=== PATIENT | male | born 1950 | race American Indian/Alaskan Native ===

== ENCOUNTER 2018-10-16 16:52 | Emergency (ER) | payer MEDICARE, OTHER ==
--- NOTE | 2018-10-16 17:04 | Emergency Department Report ---
Blank Doc - Documentation Documentation: Dr. Fu office called said he had low potassium said to come to the ED denies any symptoms just went to PCP for a regular check up PMHx HTN amlodipine, telimsartan, hydrochlorothiazide non smoker non drinker no drug use
[2018-10-16 17:17] LABS: Basophils % (Auto) 0.5 % (0.0-1.8); Eosinophils # (Auto) 0.1 K/mm3 (0.0-0.4); Eosinophils % (Auto) 1.4 % (0.0-4.3); Hematocrit 42.1 % (35.5-45.6); Hemoglobin 14.7 gm/dl (11.8-15.2); Lymphocytes # (Auto) 2.4 K/mm3 (1.2-5.4); Lymphocytes % (Auto) 23.2 % (13.4-35.0); Mean Corpuscular HGB Conc 35 % (32-34); Mean Corpuscular Volume 87 fl (84-94); Monocytes # (Auto) 0.7 K/mm3 (0.0-0.8); Monocytes % (Auto) 6.9 % (0.0-7.3); Platelet Count 234 K/mm3 (140-440); Red Blood Count 4.86 M/mm3 (3.65-5.03); Red Cell Distribution Width 13.7 % (13.2-15.2)
[2018-10-16 17:29] LABS: Calcium 9.7 mg/dL (8.4-10.2)
--- NOTE | 2018-10-16 17:59 | Emergency Department Report ---
ED Recheck HPI - General Chief Complaint: Recheck/Abnormal Lab/Rx Stated Complaint: LOW POTASSIUM Time Seen by Provider: 10/16/18 17:45 Source: patient Mode of arrival: Ambulatory Limitations: No Limitations - History of Present Illness Initial Comments: Patient is a 68-year-old male presents emergency room for recheck of potassium. Patient states he was called by his primary care because his potassium was extremely low on a routine blood draw the PCPs office. Patient's past history is hypertension only. Patient is not sure if he takes a diuretic. Patient states he is taking Norvasc. Patient denies chest pain shortness of breath. Patient denies cramps. Patient denies any physical complaints. MD Complaint: abnormal lab -: Sudden Returns Today for: CBOAL Symptoms Since Prior Visit: no new symptoms Context: called for abnorm lab res Associated Symptoms: none. denies: fever, chills, chest pain, shortness of breath, rash, malaise, nasuea, abdominal pain - Related Data Previous Rx's Medication Instructions Recorded Last Taken Type Potassium Chloride [K-Dur] 20 meq PO DAILY #15 tab 10/16/18 Unknown Rx Allergies Allergy/AdvReac Type Severity Reaction Status Date / Time No Known Allergies Allergy Verified 10/16/18 16:53 ED Review of Systems ROS: Stated complaint: LOW POTASSIUM Other details as noted in HPI Constitutional: denies: chills, fever Eyes: denies: eye pain, eye discharge, vision change ENT: denies: ear pain, throat pain Respiratory: denies: cough, shortness of breath, wheezing Cardiovascular: denies: chest pain, palpitations Endocrine: no symptoms reported Gastrointestinal: denies: abdominal pain, nausea, diarrhea Genitourinary: denies: urgency, dysuria Musculoskeletal: denies: back pain, joint swelling, arthralgia Skin: denies: rash, lesions Neurological: denies: headache, weakness, paresthesias Psychiatric: denies: anxiety, depression Hematological/Lymphatic: denies: easy bleeding, easy bruising ED Past Medical Hx - Past Medical History Previous Medical History?: Yes Hx Hypertension: Yes - Surgical History Past Surgical History?: No - Family History Family history: hypertension - Social History Smoking Status: Never Smoker Substance Use Type: None - Medications Home Medications: Home Medications Medication Instructions Recorded Confirmed Last Taken Type Potassium Chloride [K-Dur] 20 meq PO DAILY #15 tab 10/16/18 Unknown Rx ED Physical Exam - General Limitations: No Limitations General appearance: alert, in no apparent distress - Head Head exam: Present: atraumatic, normocephalic - Eye Eye exam: Present: normal appearance - ENT ENT exam: Present: mucous membranes moist - Neck Neck exam: Present: normal inspection - Respiratory Respiratory exam: Present: normal lung sounds bilaterally. Absent: respiratory distress - Cardiovascular Cardiovascular Exam: Present: regular rate, normal rhythm. Absent: systolic murmur, diastolic murmur, rubs, gallop - GI/Abdominal GI/Abdominal exam: Present: soft, normal bowel sounds - Rectal Rectal exam: Present: deferred - Extremities Exam Extremities exam: Present: normal inspection - Back Exam Back exam: Present: normal inspection - Neurological Exam Neurological exam: Present: alert, oriented X3 - Psychiatric Psychiatric exam: Present: normal affect, normal mood - Skin Skin exam: Present: warm, dry, intact, normal color. Absent: rash ED Course Vital Signs 10/16/18 10/16/18 10/16/18 17:02 17:45 17:50 Temperature 98.3 F Pulse Rate 94 H 80 89 Respiratory 16 18 19 Rate Blood Pressure Blood Pressure 132/84 140/79 [Left] O2 Sat by Pulse 96 99 Oximetry 10/16/18 10/16/18 10/16/18 17:54 18:05 18:16 Temperature Pulse Rate 79 78 Respiratory 18 11 L 22 Rate Blood Pressure 143/84 Blood Pressure 143/84 [Left] O2 Sat by Pulse 99 99 Oximetry 10/16/18 10/16/18 10/16/18 18:30 18:46 19:00 Temperature Pulse Rate 81 79 92 H Respiratory 19 14 18 Rate Blood Pressure 143/84 143/84 143/84 Blood Pressure [Left] O2 Sat by Pulse 98 99 98 Oximetry 10/16/18 10/16/18 10/16/18 19:16 19:30 19:46 Temperature Pulse Rate 80 98 H 83 Respiratory 10 L 19 22 Rate Blood Pressure 96/46 96/46 96/46 Blood Pressure [Left] O2 Sat by Pulse 99 98 97 Oximetry 10/16/18 10/16/18 10/16/18 20:00 20:16 20:30 Temperature Pulse Rate 84 88 81 Respiratory 17 24 22 Rate Blood Pressure 96/46 122/74 122/74 Blood Pressure [Left] O2 Sat by Pulse 99 100 100 Oximetry 10/16/18 10/16/18 10/16/18 20:46 21:00 21:16 Temperature Pulse Rate 79 81 Respiratory 20 12 Rate Blood Pressure 122/74 127/76 127/76 Blood Pressure [Left] O2 Sat by Pulse 99 100 98 Oximetry 10/16/18 10/16/18 10/16/18 21:30 21:46 22:00 Temperature Pulse Rate 86 81 77 Respiratory 20 22 18 Rate Blood Pressure 127/76 127/76 128/79 Blood Pressure [Left] O2 Sat by Pulse 99 99 97 Oximetry 10/16/18 10/16/18 22:16 22:30 Temperature Pulse Rate 81 83 Respiratory 15 18 Rate Blood Pressure 128/79 128/79 Blood Pressure [Left] O2 Sat by Pulse 97 98 Oximetry - Reevaluation(s) Reevaluation #1: Discussed plan of care with patient. Discussed results with patient. Patient agrees with plan of care. Patient will be given 40 mEq orally and 10 mg IV. We will recheck potassium afterwards. 10/16/18 18:46 Discussed all results with patient. Patient will be discharged home. Patient stable for discharge. Patient agrees to plan of care. Patient given discharge instructions. Patient voiced understanding of discharge instructions. 10/16/18 22:20 ED Recheck MDM - Core Measures AMI Core Measures Followed: Yes - Differential Diagnosis hypokalemia. Medication reaction. - Medical Decision Making Patient is a 68-year-old male that is emergency room for abnormal lab test. Patient found to be hypokalemic. Patient potassium 2.8. Patient given oral and IV potassium. Patient's potassium improved. Patient will be discharged home with a prescription for potassium chloride. Patient given discharge instructions. Rest of labs unremarkable. Patient will need his potassium and chemistry rechecked within 2-3 days Critical care attestation.: If time is entered above; I have spent that time in minutes in the direct care of this critically ill patient, excluding procedure time. ED Disposition Clinical Impression: Dehydration, Hypokalemia Hypertension Qualifiers: Hypertension type: essential hypertension Qualified Code(s): I10 - Essential (primary) hypertension Disposition: DC-01 TO HOME OR SELFCARE Is pt being admited?: No Does the pt Need Aspirin: No Condition: Stable Instructions: Hypokalemia (ED), Hypertension (ED) Additional Instructions: Patient to follow-up with primary care in 2-3 days. Patient will require having his chemistry checked within 2-3 days or primary care's office. Patient to return to ER if condition worsens. Patient to take meds as directed. Patient to increase water. Patient to rest. Patient to continue all meds. Prescriptions: Potassium Chloride [K-Dur] 20 meq PO DAILY #15 tab Referrals: SID LUCAS MD [Referring] - 3-5 Days Time of Disposition: 22:22
[2018-10-16] MEDS ORDERED: K-DUR PO ONE (18:43)
[2018-10-16] MEDS ORDERED: KCL 10MEQ/100ML 10 MEQ/100 ML BAG IV ONE (18:43)
[2018-10-16] MEDS ORDERED: NACL 0.9% 500 ML 500 ML IV ONE (19:34)
[2018-10-16 22:09] LABS: Calcium 9.4 mg/dL (8.4-10.2)
[2018-10-16 23:03] VITALS: BP 128/79
== END 2018-10-16 23:03 | disposition home or self-care (01) ==
LOC: ED 16:52
DX: E87.6 Hypokalemia (principal); E86.0 Dehydration; I10 Essential (primary) hypertension
CPT/HCPCS: 36415; 80048; 83735; 85025; 96365; 99283; J3480; J7040